=== PATIENT | female | born 1995 ===

== ENCOUNTER 2017-04-29 07:34 | Day surgery (SDC) | payer BC ==
[2017-04-29 07:55] VITALS: BMI 23.9
--- NOTE | 2017-04-29 09:28 | CP.SDSHP ---
Same Day Surgery H & P - History Proposed Procedure: EGD Pre-Op Diagnosis: abdominal pain - Allergies Allergies: Allergies No Known Allergies Allergy (Verified 04/29/17 07:55) - Physical Exam General Appearance: NAD Vital Signs: Vital Signs 04/29/17 07:59 Temperature 98.1 F Pulse Rate 73 Respiratory 16 Rate Blood Pressure 109/73 O2 Sat by Pulse 100 Oximetry Mental Status: Alert & Oriented x3 Neuro: WNL Heart: WNL Lungs: WNL GI: WNL - {Optional Preform as Required} Abdomen: WNL - Impression Pt. Evaluated Today:Candidate for Anesthesia & Procedure: Yes - Date & Time Date: 04/29/17 Time: 09:28 Short Stay Discharge - Short Stay Discharge Admitting Diagnosis/Reason for Visit: EPIGASTRIC PAIN Disposition: HOME/ ROUTINE
[2017-04-29] MEDS ORDERED: Lactated Ringer's 1,000 ML IV ONE (10:00)
[2017-04-29] MEDS ORDERED: Midazolam 2 MG/2 ML VIAL ONE (10:00)
[2017-04-29] MEDS ORDERED: Propofol 10 mg/ml Inj (20 ML) ONE (10:00)
[2017-04-29] MEDS ORDERED: Lidocaine Hydrochloride 5 ML INJ ONE (10:08)
[2017-04-29 11:53] VITALS: TEMP 98.7
[2017-04-29 11:55] VITALS: O2SAT 100
[2017-04-29 11:59] VITALS: BP 106/69; PULSE 77; RESP 18
== END 2017-04-29 11:40 | disposition home or self-care (01) ==
LOC: C.ENDO 07:34
PROVIDERS: ATTEND Internal Medicine Gastroenterology
DX: K29.50 Unspecified chronic gastritis without bleeding (principal)
CPT/HCPCS: 43239; 84703; 88305; J2250; J2704; J7120

== ENCOUNTER 2017-07-22 08:10 | Day surgery (SDC) | payer BC ==
[2017-07-22 08:29] VITALS: BMI 24.3
[2017-07-22] MEDS ORDERED: Propofol 10 mg/ml Inj (20 ML) ONE ×2 (11:01→11:09)
[2017-07-22] MEDS ORDERED: Lactated Ringer's 500 ML IV SCH (11:15)
[2017-07-22 11:47] VITALS: TEMP 97
[2017-07-22 12:33] VITALS: RESP 16; O2SAT 98
[2017-07-22 12:41] VITALS: BP 111/67; PULSE 72
== END 2017-07-22 12:33 | disposition home or self-care (01) ==
LOC: C.ENDO 08:10
PROVIDERS: ATTEND Internal Medicine Gastroenterology
DX: K52.839 Microscopic colitis, unspecified (principal); R19.7 Diarrhea, unspecified
CPT/HCPCS: 45380; 84703; 88305; 88313; 88342; J2704; J7120

== ENCOUNTER 2018-06-02 18:18 | Emergency (ER) | payer OTHER, BC ==
[2018-06-02 18:18] VITALS: BMI 24.3
[2018-06-02 18:34] VITALS: BP 110/74; PULSE 89; RESP 18; TEMP 98.9; O2SAT 99
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
--- NOTE | 2018-06-03 08:57 | RAD ---
Date of service: 06/02/2018 PROCEDURE: Cervical Spine Radiographs. HISTORY: Pain. COMPARISON: None. FINDINGS: BONES: There is normal alignment of the cervical vertebral bodies. There is straightening of the cervical spine with loss of normal cervical lordosis. Vertebral height is normal. Bone mineralization is normal. There is no acute fracture or traumatic anterior listhesis. The craniocervical junction is normal. The atlantoaxial joint normal. DISC SPACES: Normal. SOFT TISSUES: Normal. No prevertebral soft tissue swelling. OTHER FINDINGS: None. IMPRESSION: Straightening of the cervical spine may be positional or related to muscle spasm. No acute fracture or traumatic anterior listhesis.
== END 2018-06-02 19:26 | disposition home or self-care (01) ==
LOC: C.ER 18:18
DX: S13.4XXA Sprain of ligaments of cervical spine, initial encounter (principal); V49.9XXA Car occupant (driver) (passenger) injured in unspecified traffic accident, initial encounter